=== PATIENT | male | born 1950 | race Two or more races ===

== ENCOUNTER 2016-12-13 05:33 | Inpatient (IN) | payer OTHER ==
[~2016-12-13] VITALS: Ht 170.2 cm; Wt 116.1 kg
[2016-12-13 05:59] VITALS: BP 123/70
[2016-12-13] MEDS ORDERED: HYDROCODONE/APAP 5/325MG 1 EACH TABLET PO PRN (06:30)
[2016-12-13] MEDS ORDERED: ZOLPIDEM TARTRATE 5 MG TABLET PO PRN (06:30)
[2016-12-13] MEDS ORDERED: Z GUARD REMEDY 2 OZ OINT TP PRN (06:30)
[2016-12-13] MEDS ORDERED: MAG HYDROX/AL HYDROX/SIMETH 30 ML UDC PO PRN (06:30)
[2016-12-13] MEDS ORDERED: ONDANSETRON HCL/PF 4 MG/2 ML VIAL IVP PRN (06:30)
[2016-12-13] MEDS ORDERED: ACETAMINOPHEN 325 MG TABLET PO PRN (06:30)
[2016-12-13] MEDS ORDERED: MAGNESIUM HYDROXIDE 30 ML UDC PO PRN (06:30)
--- NOTE | 2016-12-13 06:46 | NUR ---
ANALYTICAL CHEMIST ADMITTING AND CLOSING NOTES RECEIVED PATIENT VIA GURNEY FROM [facility] AT 0550 AM WITH 2 EMT. ALERT AND VERBALLY X 4, ON 2LPM VIA [place] 02 SAT AT 96% VS STABLE. CAREFUL HEAD TO TOE ASSESSMENT IS DONE. SACRUM REDNESS AND FOOT DRYNESS, EDUCATION WAS PROVIDED. RESPONSIVE DENIES PAIN OR DISTRESS, RESPONDS APPROPRIATELY TO VERBAL STIMULI, RESPIRATIONS EVEN UNLABORED BREATH SOUNDS. APICAL PULSE REGULAR; ATTACH TO TELE MONITOR. NO S/S OF BLEEDING NOTED. GOOD SKIN CARE PROVIDED. IN STABLE CONDITION WITH NO SOB NO S/S OF DISTRESS NO NAUSEA AND VOMITING NO HEADACHE NO PAIN, NO COMPLAIN OF CHEST PAIN SAFETY ENVIRONMENT PROVIDED. FREE OF CLUTTERS, NEEDS ATTENDED AND ANTICIPATED, NURSING CARE RENDERED, KEPT CLEAN AND DRY AND COMFORTABLE. ALL DUE MEDS WAS GIVEN. ASSISTED PATIENT TO REPOSITION. CALL LIGHT IN REACH, BED LOWERED AND LOCKED, SR X2 FOR SAFETY AND WILL ENDORSE CONTINUE PLAN OF CARE.
--- NOTE | 2016-12-13 07:15 | NUR ---
TRAINING AND DEVELOPMENT DIRECTOR INITIAL NOTES Received patient in bed, awake, head of bed elevated, no SOB or distress noted, on o2 at 2lpm NC and tolerated well. Patient alert and oriented times 4. Patient on tele monitor SR heart rate of 73. IV intact and patent, bed in lowest position and locked, call light within reach. Will continue to monitor accordingly.
[2016-12-13 07:20] VITALS: BP 123/70
[2016-12-13] MEDS ORDERED: METF500T4 PO (09:31)
[2016-12-13] MEDS ORDERED: VALS1TAB54 PO (09:31)
[2016-12-13] MEDS: PANTOPRAZOLE 40 MG TABLET.DR PO SCH (09:34)
[2016-12-13] MEDS ORDERED: IV NS 0.9% 250 ML IV ONE (09:34)
[2016-12-13] MEDS ORDERED: IV SET PRIMARY PUMP SET 1 EA INFUS.SET MC ONE (09:35)
[2016-12-13] MEDS: CEFTRIAXONE 1 G in IV D5W 50 ML IV SCH (09:35)
[2016-12-13] MEDS ORDERED: SECONDARY IV SET 1 EA INFUS.SET MC ONE ×2 (09:36→11:09)
[2016-12-13] MEDS: AZITHROMYCIN 500 MG in IV D5W 250 ML IV SCH (11:15)
[2016-12-13] MEDS ORDERED: DEXTROSE 50%-WATER 50 ML DISP.SYRIN IV PRN (14:00)
[2016-12-13] MEDS: ALBUTEROL FS 2.5 MG/0.5 ML VIAL.NEB NEB PRN ×2 (14:16→20:52)
[2016-12-13] MEDS: IPRATROPIUM NEB FS 0.5 MG/2.5 ML AMPUL.NEB NEB PRN ×2 (14:16→20:52)
--- NOTE | 2016-12-13 14:17 | NUR ---
RT NOTE: PATIENT'S ID BAND WAS NOT IN PATIENTS ROOM. WAS NOT ABLE TO SCAN. VERIFIED NAME AND . STAT TREATMENT REQUESTED BY PATIENT AND GIVEN WITH NO PROBLEMS.
[2016-12-13 16:00] VITALS: BP 118/73
[2016-12-13] MEDS: CIPROFLOXACIN HCL 0.3% 5 ML BOTTLE EACHEYE SCH ×5 (17:02→23:06)
[2016-12-13] MEDS: BLOOD SUGAR DIAGNOSTIC 1 EACH STRIP VI SCH ×2 (17:35→21:21)
[2016-12-13] MEDS: METFORMIN 500 MG TABLET PO SCH (17:35)
--- NOTE | 2016-12-13 18:51 | NUR ---
REGULATORY AFFAIRS DIRECTOR CLOSING NOTES All needs provided, attended, and anticipated. On tele monitor SR heart rate of 82. Kept patient clean and comfortable in bed, call within patient reach, will continue to monitor accordingly. Endorsed to next shift RN to continue care.
--- NOTE | 2016-12-13 19:23 | NUR ---
TRUCK SERVICE MANAGER OPENING NOTE PATIENT IS AWAKE, A/O X4, NO S/S OF DISTRESS, NO CHEST PAIN. NO SOB OR DISTRESS NOTED. IN STABLE CONDITION. SAFETY MEASURES IMPLEMENTED. IV INTACT NO S/S OF INFILTRATION NOTED. CALL LIGHT WITHIN REACH. ON LOW BED TO ENSURE SAFETY. WILL CONTINUE TO MONITOR
[2016-12-13 20:00] VITALS: BP 126/76
[2016-12-13] MEDS: *INSULIN REGULAR(HUMULIN R)HUM 100 UNIT/ML VIAL SQ PRN (21:22)
--- NOTE | 2016-12-13 21:50 | NUR ---
MS RN NOTES INSULIN 2 UNITS HS AT NIGHT REFUSED BY PATIENT DESPITE EXPLAINED RISKS AND BENEFITS OFFERED 3 TIMES MD MADE AWARE. BLOOD SUGAR 137MG/DL
[2016-12-14] VITALS: BP_SYST 109; BP_SYST 93; BP_DIAS 56; BP_DIAS 63
[2016-12-14] MEDS: CIPROFLOXACIN HCL 0.3% 5 ML BOTTLE EACHEYE SCH ×11 (02:02→21:53)
[2016-12-14 04:00] VITALS: BP_SYST 109; BP_DIAS 54; BP_DIAS 70
[2016-12-14] MEDS: BLOOD SUGAR DIAGNOSTIC 1 EACH STRIP VI SCH ×4 (05:43→22:37)
--- NOTE | 2016-12-14 06:24 | NUR ---
MANAGER LONG TERM CARE CLOSING NOTES PATIENT COMFORTABLY IN BED ASLEEP AND EASILY AWAKEN, IV SITE INTACT WITH NO S/S OF INFILTRATION NOTED. ON ATB EYE DROPS GOOD EYE CARE PROVIDED. ON O2 2LPM VIA NC 02 SAT AT 96% VS STABLE. NO S/S OF HYPO/HYPERGLYCEMIA NOTED. ALERT AND VERBALLY X 4 RESPONSIVE DENIES PAIN OR DISTRESS, RESPONDS APPROPRIATELY TO VERBAL STIMULI, RESPIRATIONS EVEN UNLABORED BREATH SOUNDS. APICAL PULSE REGULAR; GOOD SKIN CARE PROVIDED. PATIENT IN STABLE CONDITION WITH NO SOB NO S/S OF DISTRESS NO NAUSEA AND VOMITING NO HEADACHE NO PAIN, NO COMPLAIN OF CHEST PAIN SAFETY ENVIRONMENT PROVIDED. FREE OF CLUTTERS, SAFE HAZARD FREE ENVIRONMENT. NEEDS ATTENDED AND ANTICIPATED, NURSING CARE RENDERED, KEPT CLEAN AND DRY AND COMFORTABLE. ALL DUE MEDS WAS GIVEN. CALL LIGHT IN REACH, BED LOWERED AND LOCKED, SR X2 FOR SAFETY AND WILL ENDORSE CONTINUE PLAN OF CARE.
--- NOTE | 2016-12-14 07:30 | NUR ---
BRIDAL STYLIST SALES CONSULTANT NOTES RECEIVED PATIENT AWAKE SITTING ON THE CHAIR, AOX3. BREATHING EVEN AND NON LABORED. NO C/O SOB OR RESPIRATORY DISTRESS, DENIES ANY PAIN OR DISCOMFORT AT THIS TIME. ON TELE MONITORING SR 74. CALL LIGHT WITHIN REACH, BED IN LOW POSITION FOR SAFETY MEASURES, WILL CONTINUE TO MONITOR.
[2016-12-14 07:56] LABS: BASOPHILS % (AUTO) 0.2 % (0.0-2.0); EOSINOPHILS % (AUTO) 0.3 % (0.0-6.0); HEMATOCRIT 46 % (39-51); LYMPHOCYTES # (AUTO) 1.6 /CMM (0.8-4.8); MEAN CORPUSCULAR HEMOGLOBIN 31 PG (26.0-33.0); MEAN CORPUSCULAR HGB CONC 33 g/dl (31.0-36.0); MEAN CORPUSCULAR VOLUME 94 fL (80-96); MONOCYTES # (AUTO) 0.8 /CMM (0.1-1.30); MONOCYTES % (AUTO) 9.7 % (2.0-12.0); NEUTROPHILS # (AUTO) 5.6 /CMM (1.8-8.9); NEUTROPHILS % (AUTO) 69.8 % (43.0-81.0); PLATELET COUNT (AUTO) 219 /CMM (150-450); RED BLOOD CELL COUNT(AUTO) 4.84 MIL/uL (4.5-6.0)
[2016-12-14 08:00] VITALS: BP 139/75
[2016-12-14 08:10] LABS: CALCIUM, SERUM 8.8 mg/dL (8.5-10.1); CREATININE 1.3 mg/dL (0.6-1.3)
[2016-12-14] MEDS: VALSARTAN 80 MG TABLET PO SCH (08:20)
[2016-12-14] MEDS: METFORMIN 500 MG TABLET PO SCH ×2 (08:20→16:26)
[2016-12-14] MEDS: PANTOPRAZOLE 40 MG TABLET.DR PO SCH (08:20)
[2016-12-14] MEDS: HYDROCHLOROTHIAZIDE 25 MG TABLET PO SCH (08:21)
[2016-12-14] MEDS: CEFTRIAXONE 1 G in IV D5W 50 ML IV SCH (08:27)
[2016-12-14] MEDS ORDERED: CEFTRIAXONE 1 G in IV D5W 50 ML IV SCH (09:00)
[2016-12-14] MEDS: AZITHROMYCIN 500 MG in IV D5W 250 ML IV SCH (10:00)
--- NOTE | 2016-12-14 10:06 | NUR ---
FIRE HOSE CURER NOTES PT C/O HEADACHE. TYLENOL PRN GIVEN ORDERED.
--- NOTE | 2016-12-14 11:06 | NUR ---
PEARL DIGGER NOTES RE EVAL DONE AFTER 1 HOUR. PATIENT STATED HE FEEL MUCH BETTER AND NO MORE HEADACHE. WILL CONTINUE TO MONITOR
[2016-12-14] MEDS: INSULIN REGULAR, HUMAN 100 UNIT/ML 3 ML VIAL SQ PRN ×2 (11:33→16:28)
--- NOTE | 2016-12-14 11:33 | NUR ---
COTTON GINNER NOTES PATIENT BLOOD SUGAR 233. PATIENT REFUSED TO TAKE HIS INSULIN COVERAGE. PATIENT STATED THAT HE'S ON METFORMIN AND HE DOESN'T NEED INSULIN. PATIENT EDUCATED ON HAVING HIGH BLOOD SUGAR AND NOT TAKING HIS PRESCRIBED INSULIN, PT VERBALIZED UNDERSTANDING. BUT STILL REFUSED TO TAKE HIS INSULIN COVERAGE.
[2016-12-14 12:00] VITALS: BP 129/73
--- NOTE | 2016-12-14 12:05 | NUR ---
STOVE POLISHER NOTES PT'S DIET CHANGED TO CCHO SINCE PT IS REFUSING HIS INSULIN. FOR DM MANAGEMENT.
[2016-12-14 16:00] VITALS: BP 117/69
[2016-12-14] MEDS: LACTOBACILLUS RHAMNOSUS GG 1 EACH CAP.SPRINK PO SCH (16:26)
--- NOTE | 2016-12-14 16:51 | NUR ---
MS RN NOTES C/O SORE THROAT CEPACOL LOZENGES PRN GIVEN ORDERED.
--- NOTE | 2016-12-14 16:52 | NUR ---
MS RN NOTES BLOOD SUGAR 128 NO INSULIN COVERAGE
[2016-12-14] MEDS ORDERED: MENTHOL/CETYLPYRD (CEPACOL) 1 LOZ LOZENGE PO PRN (17:00)
--- NOTE | 2016-12-14 19:28 | NUR ---
MS RN NOTES ALL NEEDS ATTENDED AND ANTICIPATED. ENDORSED TO INCOMING SHIFT FOR CONTINUITY OF CARE.
[2016-12-14 20:00] VITALS: BP 127/81
--- NOTE | 2016-12-14 20:24 | NUR ---
Received patient awake, alert and oriented. Patient sitting in a chair at bedside, family at bedside visiting. PAtient complained of headache /, medicated him with norco as per Oct, .
--- NOTE | 2016-12-14 22:29 | NUR ---
Medicated patient as per Oct. Patient tolerated well. Patient having non productive cough, respiratory therapy paged, breathing tratment given. Patient now in bed not coughing, resting comfortably with eyes closed.
[2016-12-14] MEDS: *INSULIN REGULAR(HUMULIN R)HUM 100 UNIT/ML VIAL SQ PRN (22:39)
[2016-12-14] MEDS: ALBUTEROL FS 2.5 MG/0.5 ML VIAL.NEB NEB PRN (22:42)
[2016-12-14] MEDS: IPRATROPIUM NEB FS 0.5 MG/2.5 ML AMPUL.NEB NEB PRN (22:43)
--- NOTE | 2016-12-15 | NUR ---
Patient complains of pain from an infiltrated IV on his right hand, removed, patient tolerated well. Saline lock on left hand flushed with normal saline, patient had no complaints of pain, patent.
[2016-12-15] MEDS: CIPROFLOXACIN HCL 0.3% 5 ML BOTTLE EACHEYE SCH ×6 (00:20→07:59)
--- NOTE | 2016-12-15 04:02 | NUR ---
Patient lying in bed comfortably, no distress, no complaints.
[2016-12-15 07:32] LABS: BASOPHILS % (AUTO) 0.2 % (0.0-2.0); EOSINOPHILS % (AUTO) 0.5 % (0.0-6.0); HEMATOCRIT 48 % (39-51); HEMOGLOBIN 15.8 g/dL (13.5-17.5); LYMPHOCYTES # (AUTO) 1.5 /CMM (0.8-4.8); LYMPHOCYTES % (AUTO) 18.6 % (20.0-44.0); MEAN CORPUSCULAR HEMOGLOBIN 31 PG (26.0-33.0); MEAN CORPUSCULAR HGB CONC 33 g/dl (31.0-36.0); MEAN CORPUSCULAR VOLUME 93 fL (80-96); MONOCYTES # (AUTO) 0.6 /CMM (0.1-1.30); MONOCYTES % (AUTO) 7.4 % (2.0-12.0); NEUTROPHILS # (AUTO) 5.9 /CMM (1.8-8.9); NEUTROPHILS % (AUTO) 73.3 % (43.0-81.0); PLATELET COUNT (AUTO) 219 /CMM (150-450); RED BLOOD CELL COUNT(AUTO) 5.09 MIL/uL (4.5-6.0)
--- NOTE | 2016-12-15 07:35 | NUR ---
RN OPEN NOTES RECEIVED REPORT FROM LAYUP WORKER NURSE. PATIENT IS IN HIS ROOM, SITTING IN A CHAIR. SPEAKS UKRAINIAN AND TURKS AND CAICOS ISLANDER ONLY. PATIENT IS ALERT AND ORIENTED. DENIED PAIN. NO SIGNS AND SYMPTOMS OF DISTRESS. WILL CONTINUE TO MONITOR AND ASSESS PATIENT
[2016-12-15] MEDS: BLOOD SUGAR DIAGNOSTIC 1 EACH STRIP VI SCH (07:55)
--- NOTE | 2016-12-15 07:56 | NUR ---
RN NOTES BLOOD SUGAR BLOOD SUGAR 170. PATIENT REFUSED INSULIN COVERAGE
[2016-12-15 07:58] LABS: CALCIUM, SERUM 9.3 mg/dL (8.5-10.1); CREATININE 1.3 mg/dL (0.6-1.3); POTASSIUM 4.6 mmol/L (3.5-5.1)
[2016-12-15 08:00] VITALS: BP 135/80
[2016-12-15] MEDS: CEFTRIAXONE 1 G in IV D5W 50 ML IV SCH (08:04)
[2016-12-15] MEDS: METFORMIN 500 MG TABLET PO SCH (08:06)
[2016-12-15] MEDS: LACTOBACILLUS RHAMNOSUS GG 1 EACH CAP.SPRINK PO SCH (08:06)
[2016-12-15] MEDS: HYDROCHLOROTHIAZIDE 25 MG TABLET PO SCH (08:07)
[2016-12-15] MEDS: PANTOPRAZOLE 40 MG TABLET.DR PO SCH (08:07)
[2016-12-15 08:09] VITALS: BP 135/80
[2016-12-15] MEDS: VALSARTAN 80 MG TABLET PO SCH (08:09)
[2016-12-15] MEDS ORDERED: AZITHROMYCIN 250 MG TABLET PO SCH (10:00)
--- NOTE | 2016-12-15 11:05 | NUR ---
RUBBER PRESS OPERATOR NOTES PATIENT DISCHARGE ORDERS RECEIVED AND EXPLAINED TO PATIENT'S DAUGHTER. BOTH VERBALIZED UNDERSTANDING. ALL PERSONAL BELONGING WITH PATIENT AT TIME OF DISCHARGE. PICTURES HAS BEEN TAKEN DURING THE PREVIOUS SHIFT AND PLACED IN THE CHART. PATIENT IS BEING DISCHARGE IN A STABLE CONDITION. PRESCRIPTION GAVE TO PATIENT. NO SIGNS AND SYMPTOMS OF DISTRESS. IV SITE REMOVED. ID BAND REMOVED. PATIENT LEFT THE UNIT WITH HIS DAUGHTER AND TRANSPORTED HOME VIA A PRIVATE CAR.
[2016-12-15] MEDS ORDERED: CIPROFLOXACIN HCL 0.3% 5 ML BOTTLE EACHEYE SCH (13:00)
== END 2016-12-15 11:00 | disposition home or self-care (01) | DRG 139 ==
LOC: TELE 05:33 → MED 12-14 13:34
PROVIDERS: ADMIT Nurse Practitioner Acute Care; ATTEND Family Medicine
DX: J15.9 Unspecified bacterial pneumonia (principal); E44.1 Mild protein-calorie malnutrition; I10 Essential (primary) hypertension; E66.01 Morbid (severe) obesity due to excess calories; E11.9 Type 2 diabetes mellitus without complications; H10.9 Unspecified conjunctivitis; K21.9 Gastro-esophageal reflux disease without esophagitis; Z72.0 Tobacco use; F17.210 Nicotine dependence, cigarettes, uncomplicated; Z68.41 Body mass index [BMI] 40.0-44.9, adult
CPT/HCPCS: 36415; 80048-TC; 80061-TC; 82962-TC; 85025-TC; 87070-TC; 87081-TC; 94799-TC; J0456; J0696; J1815; J7050; J7060

== ENCOUNTER 2022-12-11 21:00 | Inpatient (IN) | payer MEDICARE, OTHER ==
[~2022-12-11] VITALS: Ht 167.6 cm; Wt 128.4 kg
[~2022-12-11 21:00] MED LIST: AMLO-212 PO; GUAI5SYR PO; METF-440 PO; VALS80TA2 PO
--- NOTE | 2022-12-11 21:47 | NUR ---
PT IN BED 7 BREATHING IS EVEN 90% ON ROOM AIR. PT C/O OF SOB NC APPLED 3L O2SAT 94% ON REASSESSMENT. FRIEND AT BEDSIDE. CONNECTED TO BEDISDE MONITOR VITAL WNL.
[2022-12-11 21:55] LABS: BASOPHILS # (AUTO) 0.4 K/uL (0.0-0.2); HEMATOCRIT 46 % (39-51); HEMOGLOBIN 14.9 g/dL (13.5-17.5); MEAN CORPUSCULAR HGB CONC 32 g/dl (31.0-36.0); MEAN CORPUSCULAR VOLUME 94 fL (80-96); MONOCYTES # (AUTO) 0.5 K/uL (0.1-1.30); MONOCYTES % (AUTO) 5.9 % (2.0-12.0); NEUTROPHILS # (AUTO) 6.4 K/uL (1.8-8.9); PLATELET COUNT (AUTO) 185 K/uL (150-450); RED BLOOD CELL COUNT(AUTO) 4.93 MIL/uL (4.5-6.0); WHITE BLOOD COUNT (AUTO) 8.4 K/uL (4.3-11.0)
[2022-12-11 22:11] LABS: BASOPHILS % (AUTO) 5.1 % (0.0-2.0)
[2022-12-11 22:40] LABS: ALANINE AMINOTRANSFERASE 36 U/L (12-78); ALBUMIN 3.4 g/dL (3.4-5.0); ALKALINE PHOSPHATASE 79 U/L (46-116); ASPARTATE AMINOTRANSFERASE 15 U/L (15-37); BILIRUBIN,DIRECT 0.1 mg/dL (0.0-0.2); BILIRUBIN,TOTAL 0.5 mg/dL (0.2-1.0); CALCIUM, SERUM 8.8 mg/dL (8.5-10.1); CREATININE 1.6 mg/dL (0.6-1.3); GLUCOSE 186 mg/dL (74-106); TOTAL PROTEIN, SERUM 6.9 g/dL (6.4-8.2); UREA NITROGEN, BLOOD 36 mg/dL (7-18)
[2022-12-11 22:53] LABS: CARBON DIOXIDE 32 mmol/L (21-32); CHLORIDE 107 mmol/L (98-107); POTASSIUM 4.5 mmol/L (3.5-5.1); SODIUM SERUM 145 mmol/L (136-145)
[2022-12-12] VITALS (9 sets, daily range): BP systolic 103–140; BP diastolic 64–98
[2022-12-12] MEDS ORDERED: ONDANSETRON HCL/PF 4 MG/2 ML VIAL IVP PRN
[2022-12-12] MEDS ORDERED: ACETAMINOPHEN 325 MG TABLET PO PRN
--- NOTE | 2022-12-12 | NUR ---
DUPLICATE ORDER OF LASIX INJ NOT GIVEN.
[2022-12-12] MEDS ORDERED: FUROSEMIDE 40 MG/4 ML VIAL IV ONE ×2 (00:30)
--- NOTE | 2022-12-12 01:13 | NUR ---
REPORT GIVEN TO ELISHA VALLE 3W
--- NOTE | 2022-12-12 01:22 | NUR ---
PT BEING TRANSPORTED TO UNIT ON [facility] WITH EMT AND RN AT BEDSIDE W/ ACLS PROTOCOL.
--- NOTE | 2022-12-12 02:00 | NUR ---
RECEIVED PT FROM NURSE BYRNE OF ED. PT ABLE TO WALK FROM [place] TO BED. A/O X 3, ALGERIAN SPEAKING BUT CAN SPEAK & UNDERSTAND SIMPLE SAMI, ABLE TO MAKE NEEDS KNOWN. ORIENTED TO STAFF AND UNIT. PT IN 2LMP O2 INHALATION VIA NASAL CANNULA., TOLERATING WELL, BREATHING EVEN AND UNLABORED @ THIS TIME. PT IV ACCESS IS PRESENT ON LEFT AC #20G SALINE LOCK, PATENT, INTACT AND FLUSHES WELL W/ NO S&SX OF INFILTRATION @ SITE NOTED. PT IS ON BRICK MOLDER HAND WITH CURRENT READING OF AFIB, HR 81. PT IS AMBULATORY WITH ASSISTANCE BUT GIVEN URINAL ON BEDSIDE. VITAL SIGNS TAKEN AND DOCUMENTED. SKIN IS WARM AND DRY. PHOTOS OF SKIN ON BILATERAL LOWER EXTREMITY IS TAKEN AND FILED ON PT CHART. PT BELONGINGS IS LISTED AND ACCOUNTED FOR AND FILED ON PT CHART. ALL NEEDS ATTENDED. SAFETY MEASURE IS IN PLACE. BED PLACED IN LOWEST & LOCKED POSITION. SIDE RAILS X 2. BEDSIDE TABLE AND CALL LIGHT IS EASY REACH. BED ALARM IS ON. WILL CONTINUE TO MONITOR PT ACCORDINGLY.
[2022-12-12 06:23] LABS: BASOPHILS % (AUTO) 0.4 % (0.0-2.0); EOSINOPHILS % (AUTO) 0.6 % (0.0-6.0); HEMATOCRIT 45 % (39-51); HEMOGLOBIN 14.7 g/dL (13.5-17.5); LYMPHOCYTES # (AUTO) 1.3 K/uL (0.8-4.8); LYMPHOCYTES % (AUTO) 17.3 % (20.0-44.0); MEAN CORPUSCULAR HGB CONC 33 g/dl (31.0-36.0); MEAN CORPUSCULAR VOLUME 94 fL (80-96); MONOCYTES # (AUTO) 0.6 K/uL (0.1-1.30); MONOCYTES % (AUTO) 8.1 % (2.0-12.0); NEUTROPHILS # (AUTO) 5.6 K/uL (1.8-8.9); NEUTROPHILS % (AUTO) 73.6 % (43.0-81.0); PLATELET COUNT (AUTO) 168 K/uL (150-450); RED BLOOD CELL COUNT(AUTO) 4.83 MIL/uL (4.5-6.0); WHITE BLOOD COUNT (AUTO) 7.6 K/uL (4.3-11.0)
--- NOTE | 2022-12-12 06:38 | NUR ---
RN CLOSING NOTE PT AWAKE AND RESTING COMFORTABLY IN BED. A/O X 3, RESPONSIVE AND FOLLOWS VERBAL COMMAND. PT IN 2LMP O2 INHALATION VIA NASAL CANNULA, W/ NO s & SX OF RESPIRATORY DISTRESS @ THIS TIME. PT IV ACCESS IS PRESENT ON LEFT AC #20G SALINE LOCK, PATENT, INTACT AND FLUSHES WELL W/ NO S&SX OF INFILTRATION @ SITE NOTED. PT IS ON YOUTH DIRECTOR WITH CURRENT READING OF AFIB HR 89 BPM. PT IS KEPT CLEAN, DRY AND COMFORTABLE. ADMINISTERED MEDICATION ACCORDINGLY PER MD'S ORDER. SAFETY MEASURE IS IN PLACE. BED PLACED IN LOWEST & LOCKED POSITION. SIDE RAILS X 2. BEDSIDE TABLE AND CALL LIGHT IS EASY REACH. BED ALARM IS ON. WILL ENDORSE TO THE NEXT SHIFT FOR KAILEE.
[2022-12-12 07:07] LABS: CALCIUM, SERUM 9.2 mg/dL (8.5-10.1); CREATININE 1.5 mg/dL (0.6-1.3); MAGNESIUM 1.9 mg/dL (1.8-2.4); PHOSPHORUS 3.4 mg/dL (2.5-4.9); POTASSIUM 4.2 mmol/L (3.5-5.1)
--- NOTE | 2022-12-12 07:42 | NUR ---
INSTRUMENT REPAIR SPECIALIST OPENING NOTE (DAY SHIFT) Patient received awake and alert & oriented x 4 in bed, with even regular breathing on oxygen via nasal cannula @ 2 LPM. Patietn able to make needs known and to folow commands. No signs of distress nor pain observed and patient denied pain. ekg monitor showing controlled atrial fibrillation with heart rate ranging in 70s to 80s bpm. Lung sounds diminished in bases, but otherwise clear to auscultation. Positive bowel sounds to abdomen with report of flatus. Safety fall precautions maintained: bed in lowest position; three bed side rails up; bed brakes locked; and call brandon/light with bed side table within patient's reach. Will continue to monitor and care for patient per MD POC.
[2022-12-12] MEDS ORDERED: VALSARTAN 80 MG TABLET PO SCH (09:00)
[2022-12-12] MEDS ORDERED: DEXTROSE 50%-WATER 50 ML DISP.SYRIN IV PRN (09:00)
[2022-12-12] MEDS: AMLODIPINE BESYLATE 5 MG TABLET PO SCH (09:30)
[2022-12-12] MEDS: FUROSEMIDE 100 MG/10 ML VIAL IV SCH ×3 (09:30→17:35)
[2022-12-12] MEDS: ENOXAPARIN SODIUM 40 MG/0.4 ML DISP.SYRIN SQ SCH (09:32)
[2022-12-12] MEDS ORDERED: ERGO500093 PO (10:56)
[2022-12-12] MEDS ORDERED: LOSA50TA39 PO (10:56)
[2022-12-12] MEDS ORDERED: GLIM2TAB31 PO (10:56)
[2022-12-12] MEDS ORDERED: POTA10TA10 PO (10:56)
[2022-12-12] MEDS ORDERED: ATOR40TA PO (10:56)
[2022-12-12] MEDS ORDERED: GABA300C PO (10:56)
[2022-12-12] MEDS ORDERED: EMPA10TA PO (10:56)
[2022-12-12] MEDS ORDERED: FURO20TA4 PO (10:56)
[2022-12-12] MEDS ORDERED: FOLI0.4T6 PO (10:56)
[2022-12-12] MEDS ORDERED: CARV25TA2 PO (10:56)
[2022-12-12] MEDS ORDERED: DULA0.75 SQ (10:56)
[2022-12-12] MEDS: INSULIN REGULAR, HUMAN 100 UNIT/ML 3 ML VIAL SQ PRN ×2 (12:30→16:46)
[2022-12-12] MEDS: BLOOD SUGAR DIAGNOSTIC 1 EACH STRIP IN SCH ×3 (12:30→21:24)
[2022-12-12 16:59] LABS: BILIRUBIN,URINE NEGATIVE (NEGATIVE); COLOR,URINE YELLOW (YELLOW); LEUKOCYTE ESTERASE ,URINE NEGATIVE (NEGATIVE); NITRITE, URINE NEGATIVE (NEGATIVE); PROTEIN,URINE NEGATIVE (NEGATIVE); UGLUCOSE NEGATIVE (NEGATIVE); UROBILINOGEN,URINE 0.2 EU/dL (0.2)
[2022-12-12 17:11] LABS: CREATININE, URINE 22.5 MG/DL (30.0-125.0)
[2022-12-12] MEDS: GLIMEPIRIDE 1 MG TABLET PO SCH (17:35)
[2022-12-12] MEDS: ATORVASTATIN 40 MG TABLET PO SCH ×2 (17:35→21:05)
--- NOTE | 2022-12-12 19:00 | NUR ---
NAVIGATION TEACHER CLOSING NOTE (DAY SHIFT) PT AWAKE AND RESTING COMFORTABLY SITTING UPRIGHT IN CHAIR. A/O X 3, RESPONSIVE AND FOLLOWS VERBAL COMMAND. PATIENT SPEAKS MOSTLY ARABIC. PT ON 2 LPM OXYGEN VIA NASAL CANNULA, WITH NO SIGNS NOR SYMPTOMS OF RESPIRATORY DISTRESS @ THIS TIME. PT IV ACCESS IS PRESENT ON LEFT AC #20G SALINE LOCK, PATENT, INTACT AND FLUSHES WELL WITH NO S & SX OF INFILTRATION @ SITE NOTED. PT IS ON MILITARY EXCHANGE WIRELESS MANAGER WITH CURRENT READING OF AFIB RANGING BETWEEN 70S TO 80S BPM HEART RATE. PT IS KEPT CLEAN, DRY AND COMFORTABLE. ADMINISTERED MEDICATION PER MD'S ORDER. PATIENT REFUSING REGULAR INSULIN SQ INJECTIONS. MD AWARE. SAFETY MEASURES ARE IN PLACE. BED PLACED IN LOWEST & LOCKED POSITION. SIDE RAILS X 2. BEDSIDE TABLE AND CALL LIGHT IS WITHIN EASY REACH OF PATIENT. WILL ENDORSE TO THE LOTUS NOTES ADMINISTRATOR RN, ESTELA, FOR KAILEE.
--- NOTE | 2022-12-12 19:30 | NUR ---
MEDICAL DOCTOR OPENING NOTES RECEIVED PATIENT AWAKE IN BED. PATIENT IS A/O TIMES 4. PORTUGUESE AND GREEK SPEAKER. DAUGHTER PERLA AT BED SIDE. NO PAIN NOTED. NO SOB NOTED. NO DISTRESS NOTED. POOR BILATERAL VISION. AMBULATES WITH ASSISTANCE. ON TELE MONITOR READING CONTROLLED AFIB. IV ACCESS ON THE LAC # 20 INTACT AND SL. ALL NEEDS ATTENDED. REMINDED THE PATIENT TO USE CALL LIGHT FOR ASSISTANCE , VERBALIZED UNDERSTANDING. ALL SAFETY MEASURES IN LACE. BED LOCKED IN THE LOWEST POSITION. CALL LIGHT AND TABLE IN EASY REACH. SIDE RAILS UP TIMES 2. WILL CONTINUE TO MONITOR CLOSELY.
[2022-12-12] MEDS: GABAPENTIN 300 MG CAPSULE PO SCH (21:05)
--- NOTE | 2022-12-12 22:00 | NUR ---
RN NOTES BLOOD SUGAR CHECKED FOR 2200 IT WAS 150. PATIENT REFUSED INSULIN. OFFERED AND EXPLAINED THE USE OF THE MEDICATION. PATIENT STILL REFUSING.
[2022-12-13] VITALS: BP 92/50
[2022-12-13 04:00] VITALS: BP 99/58
[2022-12-13 06:19] LABS: BASOPHILS % (AUTO) 0.4 % (0.0-2.0); EOSINOPHILS % (AUTO) 0.4 % (0.0-6.0); HEMATOCRIT 48 % (39-51); HEMOGLOBIN 15.4 g/dL (13.5-17.5); LYMPHOCYTES # (AUTO) 1.6 K/uL (0.8-4.8); LYMPHOCYTES % (AUTO) 20.6 % (20.0-44.0); MEAN CORPUSCULAR HGB CONC 32 g/dl (31.0-36.0); MEAN CORPUSCULAR VOLUME 94 fL (80-96); MONOCYTES # (AUTO) 0.7 K/uL (0.1-1.30); MONOCYTES % (AUTO) 8.9 % (2.0-12.0); NEUTROPHILS # (AUTO) 5.6 K/uL (1.8-8.9); NEUTROPHILS % (AUTO) 69.7 % (43.0-81.0); PLATELET COUNT (AUTO) 202 K/uL (150-450)
[2022-12-13 07:00] VITALS: BP 95/54
[2022-12-13 07:08] LABS: ALBUMIN 3.4 g/dL (3.4-5.0); BILIRUBIN,TOTAL 1.1 mg/dL (0.2-1.0); CALCIUM, SERUM 9.3 mg/dL (8.5-10.1); CREATININE 1.9 mg/dL (0.6-1.3); PHOSPHORUS 4.8 mg/dL (2.5-4.9); POTASSIUM 4.1 mmol/L (3.5-5.1); TOTAL PROTEIN, SERUM 6.9 g/dL (6.4-8.2)
--- NOTE | 2022-12-13 07:30 | NUR ---
RN NOTES BLOOD SUGAR CHECKED NOTED 136. PATIENT REFUSED INSULIN.
--- NOTE | 2022-12-13 07:35 | NUR ---
RN OPENING NOTE RECEIVED PATIENT IN BED, AWAKE, A/O X4, VERBALLY RESPONSIVE AND ABLE TO MAKE NEEDS KNOWN, UPPER SORBIAN SPEAKING. ON O2 INHALATION @2LPM VIA N/C, BREATHING EVEN AND UNLABORED. ON QUARTER SECTION IRONER SHOWING SINUS RHYTHM, HR @88. DENIES ANY PAIN AT THIS TIME. WITH IV ACCESS ON LEFT ANTECUBITAL AREA #20G, INTACT AND PATENT, SALINE LOCKED. SAFETY MEASURE IN PLACE. BED IN LOW AND LOCKED POSITION, SIDE RAILS UP X2, CALL LIGHT PLACED WITHIN EASY REACH. WILL CONTINUE TO MONITOR PATIENT.
[2022-12-13] MEDS: BLOOD SUGAR DIAGNOSTIC 1 EACH STRIP IN SCH ×4 (07:39→22:01)
--- NOTE | 2022-12-13 07:57 | NUR ---
RN HEMATOLOGY CLOSING NOTES PATIENT AWAKE IN BED. PATIENT IS A/O TIMES 4. LUXEMBOURGER AND VATICAN CITIZEN SPEAKER. NO PAIN NOTED. NO SOB NOTED. NO DISTRESS NOTED. POOR BILATERAL VISION. AMBULATES WITH ASSISTANCE. ON TELE MONITOR READING SR. IV ACCESS ON THE LAC # 20 INTACT AND SL. ALL DUE MEDS GIVEN ORDERED. ALL NEEDS ATTENDED. REMINDED THE PATIENT TO USE CALL LIGHT FOR ASSISTANCE , VERBALIZED UNDERSTANDING. ALL SAFETY MEASURES IN LACE. BED LOCKED IN THE LOWEST POSITION. CALL LIGHT AND TABLE IN EASY REACH. SIDE RAILS UP TIMES 2. WILL ENDORSE FOR KAILEE.
[2022-12-13] MEDS: FOLIC ACID 1 MG TABLET PO SCH (08:45)
[2022-12-13] MEDS: AMLODIPINE BESYLATE 5 MG TABLET PO SCH (08:45)
[2022-12-13] MEDS: POTASSIUM CHLORIDE 10 MEQ TABLET.SA PO SCH (08:45)
[2022-12-13] MEDS: GLIMEPIRIDE 1 MG TABLET PO SCH ×2 (08:47→17:29)
[2022-12-13] MEDS: ENOXAPARIN SODIUM 40 MG/0.4 ML DISP.SYRIN SQ SCH (08:53)
[2022-12-13 16:00] VITALS: BP 128/78
--- NOTE | 2022-12-13 18:52 | NUR ---
RN CLOSING NOTE PATIENT IN BED, AWAKE, A/O X4, VERBALLY RESPONSIVE AND ABLE TO MAKE NEEDS KNOWN, TUNISIAN SPEAKING. FAMILY AT BEDSIDE. REMAINS ON O2 INHALATION @2LPM VIA N/C, BREATHING EVEN AND UNLABORED. CONTINUE ON CARDIAC MONITORING SHOWING AFIB HR @88. DENIES ANY PAIN AT THIS TIME. WITH IV ACCESS ON LEFT ANTECUBITAL AREA #20G, INTACT AND PATENT, SALINE LOCKED. ALL DUE MEDS GIVEN. SAFETY MEASURE MAINTAINED. BED IN LOW AND LOCKED POSITION, SIDE RAILS UP X2, CALL LIGHT PLACED WITHIN EASY REACH. WILL ENDORSE TO NEXT SHIFT FOR KAILEE.
--- NOTE | 2022-12-13 19:31 | NUR ---
RN OPENING NOTE; RECEIVED PATIENT IN BED, AWAKE, A/O X4, VERBALLY RESPONSIVE AND ABLE TO MAKE NEEDS KNOWN, ITALIAN SPEAKING. FAMILY AT BEDSIDE.ON 2L O2 VIA NC FARZAD WELL SATING 97.6%,NO SOB/DISTRESS NOTED,WITH IV ACCESS ON LEFT ANTECUBITAL AREA #20G, INTACT AND PATENT, SALINE LOCKED.SAFETY MEASURE MAINTAINED. BED IN LOW AND LOCKED POSITION, SIDE RAILS UP X2, CALL LIGHT PLACED WITHIN EASY REACH. WILL CONTINUE TO MONITOR.
[2022-12-13 20:00] VITALS: BP 106/76
[2022-12-13] MEDS: GABAPENTIN 300 MG CAPSULE PO SCH (21:10)
[2022-12-13] MEDS: ATORVASTATIN 40 MG TABLET PO SCH (21:11)
[2022-12-14] VITALS: BP 101/56
[2022-12-14 04:00] VITALS: BP 116/54
[2022-12-14] MEDS: BLOOD SUGAR DIAGNOSTIC 1 EACH STRIP IN SCH ×4 (06:20→22:13)
[2022-12-14 06:30] LABS: BASOPHILS % (AUTO) 0.4 % (0.0-2.0); EOSINOPHILS % (AUTO) 0.6 % (0.0-6.0); HEMATOCRIT 49 % (39-51); HEMOGLOBIN 15.6 g/dL (13.5-17.5); LYMPHOCYTES # (AUTO) 1.8 K/uL (0.8-4.8); LYMPHOCYTES % (AUTO) 24.9 % (20.0-44.0); MEAN CORPUSCULAR HGB CONC 32 g/dl (31.0-36.0); MEAN CORPUSCULAR VOLUME 94 fL (80-96); MONOCYTES # (AUTO) 0.8 K/uL (0.1-1.30); MONOCYTES % (AUTO) 10.5 % (2.0-12.0); NEUTROPHILS # (AUTO) 4.6 K/uL (1.8-8.9); NEUTROPHILS % (AUTO) 63.6 % (43.0-81.0); PLATELET COUNT (AUTO) 177 K/uL (150-450); RED BLOOD CELL COUNT(AUTO) 5.16 MIL/uL (4.5-6.0); WHITE BLOOD COUNT (AUTO) 7.3 K/uL (4.3-11.0)
--- NOTE | 2022-12-14 06:30 | NUR ---
RN CLOSING NOTE; PATIENT IN BED, AWAKE, A/O X4, VERBALLY RESPONSIVE AND ABLE TO MAKE NEEDS KNOWN, UKRAINIAN SPEAKING.ON 2L O2 VIA NC FARZAD WELL SATING 98%,NO SOB/DISTRESS NOTED,NO COMPLAIN OF PAIN/DISCOMFORT DURING SHIFT,ALL NEEDS ATTENDED,DUE MEDS GIVEN ORDER,WITH IV ACCESS ON LEFT ANTECUBITAL AREA #20G, INTACT AND PATENT, SALINE LOCKED.SAFETY MEASURE MAINTAINED. BED IN LOW AND LOCKED POSITION, SIDE RAILS UP X2, CALL LIGHT PLACED WITHIN EASY REACH. WILL ENDORSED TO NEXT SHIFT.
[2022-12-14 06:47] LABS: ALBUMIN 3.1 g/dL (3.4-5.0); BILIRUBIN,TOTAL 0.9 mg/dL (0.2-1.0); CALCIUM, SERUM 9.2 mg/dL (8.5-10.1); CREATININE 1.7 mg/dL (0.6-1.3); MAGNESIUM 2.2 mg/dL (1.8-2.4); PHOSPHORUS 4.2 mg/dL (2.5-4.9); POTASSIUM 3.9 mmol/L (3.5-5.1); TOTAL PROTEIN, SERUM 6.4 g/dL (6.4-8.2)
--- NOTE | 2022-12-14 07:45 | NUR ---
MACHINIST 2ND SHIFT OPENING NOTE; RECEIVED PATIENT IN BED, AWAKE, A/O X4, VERBALLY RESPONSIVE AND ABLE TO MAKE NEEDS KNOWN, ALGERIAN SPEAKING. NO SIGNS OF ACUTE DISTRESS NOTED. ON O2 INHALATION AT 2LPM VIA NC TOLERATING WELL, SATURATING 97%. NO SOB NOTED, BREATHING EVEN AND UNLABORED. ON TELE MONITOR-AFIB CONTROL 79 BPM. NOTED WITH IV ACCESS ON LEFT ANTECUBITAL AREA #20G, INTACT AND PATENT, SL. SAFETY MEASURE IN PLACE. BED IN LOW AND LOCKED POSITION; SIDE RAILS UP X2; CALL LIGHT PLACED WITHIN EASY REACH. WILL CONTINUE TO MONITOR THE PATIENT.
[2022-12-14 08:00] VITALS: BP 93/65
[2022-12-14] MEDS: FUROSEMIDE 100 MG/10 ML VIAL IV SCH ×3 (08:30→17:41)
[2022-12-14] MEDS: POTASSIUM CHLORIDE 10 MEQ TABLET.SA PO SCH (09:00)
[2022-12-14] MEDS: AMLODIPINE BESYLATE 5 MG TABLET PO SCH (09:00)
[2022-12-14] MEDS: GLIMEPIRIDE 1 MG TABLET PO SCH ×2 (09:06→17:41)
[2022-12-14] MEDS: FOLIC ACID 1 MG TABLET PO SCH (09:06)
[2022-12-14] MEDS: ENOXAPARIN SODIUM 40 MG/0.4 ML DISP.SYRIN SQ SCH (09:07)
--- NOTE | 2022-12-14 09:10 | NUR ---
MS TELLO WASN'T ABLE TO ADMINISTER LASIX INJ, NORVASC AND KDUR DUE TO PATIENT HAS LOW BP, 93/65MMHG. MADE AWARE. Addendum: 12/14/22 at 1024 by SHIELA REYNOLDS RN JORI TELLO
[2022-12-14 12:00] VITALS: BP 92/72
--- NOTE | 2022-12-14 13:30 | NUR ---
UPHOLSTERY CLEANER SEEN BY DR. FAWN FINE.
[2022-12-14 16:19] VITALS: BP 113/71
--- NOTE | 2022-12-14 18:58 | NUR ---
COVER CUTTER CLOSING NOTE PATIENT IN BED, AWAKE, A/O X4, VERBALLY RESPONSIVE AND ABLE TO MAKE NEEDS KNOWN, YI SPEAKING. NO SIGNS OF ACUTE DISTRESS NOTED. ON O2 INHALATION AT 2LPM VIA NC TOLERATING WELL, SATURATING 99%. NO SOB NOTED, BREATHING EVEN AND UNLABORED. ON TELE MONITOR-AFIB CONTROLLED HR:88. WITH IV ACCESS ON LEFT ANTECUBITAL AREA #20G, INTACT AND PATENT, SL. ALL NEEDS ATTENDED. DUE MEDS GIVEN ORDER NOTED. SAFETY MEASURE IN PLACE. BED IN LOW AND LOCKED POSITION; SIDE RAILS UP X2; CALL LIGHT PLACED WITHIN EASY REACH. WILL CONTINUE TO MONITOR THE PATIENT. WILL ENDORSE TO PIER MASTER NURSE FOR CONTINUITY OF CARE.
--- NOTE | 2022-12-14 19:43 | NUR ---
RN OPENING NOTE; RECEIVED PATIENT IN BED, AWAKE, A/O X4, VERBALLY RESPONSIVE AND ABLE TO MAKE NEEDS KNOWN, DIVEHI SPEAKING.ON 2L O2 VIA NC FARZAD WELL SATING 98%,NO SOB/DISTRESS NOTED,WITH IV ACCESS ON LEFT ANTECUBITAL AREA #20G, INTACT AND PATENT, SALINE LOCKED.SAFETY MEASURE MAINTAINED. BED IN LOW AND LOCKED POSITION, SIDE RAILS UP X2, CALL LIGHT PLACED WITHIN EASY REACH. WILL CONTINUE TO MONITOR.
[2022-12-14] MEDS: GABAPENTIN 300 MG CAPSULE PO SCH (21:19)
[2022-12-14] MEDS: ATORVASTATIN 40 MG TABLET PO SCH (21:19)
[2022-12-14 23:50] VITALS: BP 94/46
[2022-12-15] VITALS: BP 105/56
--- NOTE | 2022-12-15 06:15 | NUR ---
RN CLOSING NOTE; PATIENT IN BED, AWAKE, A/O X4, VERBALLY RESPONSIVE AND ABLE TO MAKE NEEDS KNOWN, MALAY SPEAKING.ON 2L O2 VIA NC FARZAD WELL SATING 96%,NO SOB/DISTRESS NOTED,NO COMPLAIN OF PAIN/DISCOMFORT DURING SHIFT,ALL NEEDS ATTENDED,DUE MEDS GIVEN ORDER,WITH IV ACCESS ON LEFT ANTECUBITAL AREA #20G, INTACT AND PATENT, SALINE LOCKED.SAFETY MEASURE MAINTAINED. BED IN LOW AND LOCKED POSITION, SIDE RAILS UP X2, CALL LIGHT PLACED WITHIN EASY REACH. WILL ENDORSED TO NEXT SHIFT.
[2022-12-15] MEDS: BLOOD SUGAR DIAGNOSTIC 1 EACH STRIP IN SCH ×4 (06:47→22:30)
[2022-12-15 07:16] LABS: BASOPHILS % (AUTO) 0.2 % (0.0-2.0); EOSINOPHILS % (AUTO) 0.5 % (0.0-6.0); HEMATOCRIT 47 % (39-51); HEMOGLOBIN 14.9 g/dL (13.5-17.5); LYMPHOCYTES # (AUTO) 1.8 K/uL (0.8-4.8); LYMPHOCYTES % (AUTO) 23.5 % (20.0-44.0); MEAN CORPUSCULAR HGB CONC 32 g/dl (31.0-36.0); MEAN CORPUSCULAR VOLUME 94 fL (80-96); MONOCYTES # (AUTO) 0.8 K/uL (0.1-1.30); MONOCYTES % (AUTO) 10.8 % (2.0-12.0); NEUTROPHILS # (AUTO) 4.9 K/uL (1.8-8.9); PLATELET COUNT (AUTO) 186 K/uL (150-450); RED BLOOD CELL COUNT(AUTO) 4.94 MIL/uL (4.5-6.0); WHITE BLOOD COUNT (AUTO) 7.5 K/uL (4.3-11.0)
[2022-12-15 07:23] LABS: ALBUMIN 3.5 g/dL (3.4-5.0); BILIRUBIN,TOTAL 0.9 mg/dL (0.2-1.0); CALCIUM, SERUM 9.2 mg/dL (8.5-10.1); CREATININE 1.9 mg/dL (0.6-1.3); MAGNESIUM 2.1 mg/dL (1.8-2.4); PHOSPHORUS 4.1 mg/dL (2.5-4.9); POTASSIUM 3.5 mmol/L (3.5-5.1); TOTAL PROTEIN, SERUM 6.9 g/dL (6.4-8.2)
--- NOTE | 2022-12-15 07:30 | NUR ---
PT RECEIVED RESTING COMFORTABLY IN BED. NO S/S OR C/O PAIN OR DISTRESS NOTED. SIDE RAILS UP X2, CALL LIGHT LEFT WITHIN REACH. WILL CONTINUE PLAN OF CARE.
[2022-12-15] MEDS: AMLODIPINE BESYLATE 5 MG TABLET PO SCH (09:00)
[2022-12-15] MEDS: FOLIC ACID 1 MG TABLET PO SCH (09:12)
[2022-12-15] MEDS: POTASSIUM CHLORIDE 10 MEQ TABLET.SA PO SCH (09:12)
[2022-12-15] MEDS: GLIMEPIRIDE 1 MG TABLET PO SCH ×2 (09:13→16:40)
[2022-12-15] MEDS: ENOXAPARIN SODIUM 40 MG/0.4 ML DISP.SYRIN SQ SCH (09:16)
[2022-12-15 10:00] VITALS: BP 102/70
[2022-12-15 15:08] LABS: ABG BASE EXCESS 7.9 mmol/L; ABG PCO2 60.6 mmHg (35.0-45.0); ABG PH 7.386 (7.350-7.450); ABG PO2 85.1 mmHg (75.0-100.0); COHb 1.3 % (0.5-1.5); O2Hb 95.3 % (94.0-97.0); SITE, ABG Left Radial; VENT MODE, BG NC 2 LPM
--- NOTE | 2022-12-15 19:34 | NUR ---
RN OPENING NOTE; RECEIVED PATIENT IN BED, AWAKE, A/O X4, VERBALLY RESPONSIVE AND ABLE TO MAKE NEEDS KNOWN, MALAY SPEAKING.ON 2L O2 VIA NC FARZAD WELL SATING 96%,NO SOB/DISTRESS NOTED,WITH IV ACCESS ON LEFT ANTECUBITAL AREA #20G, INTACT AND PATENT, SALINE LOCKED.SAFETY MEASURE MAINTAINED. BED IN LOW AND LOCKED POSITION, SIDE RAILS UP X2, CALL LIGHT PLACED WITHIN EASY REACH. WILL CONTINUE TO MONITOR.
[2022-12-15 20:00] VITALS: BP 110/68
[2022-12-15] MEDS: GABAPENTIN 300 MG CAPSULE PO SCH (21:12)
[2022-12-15] MEDS: ATORVASTATIN 40 MG TABLET PO SCH (21:12)
[2022-12-16] VITALS: BP 133/67
[2022-12-16 04:00] VITALS: BP 97/66
--- NOTE | 2022-12-16 06:31 | NUR ---
RN CLOSING NOTE; PATIENT IN BED, AWAKE, A/O X4, VERBALLY RESPONSIVE AND ABLE TO MAKE NEEDS KNOWN, ALBANIAN SPEAKING.ON 2L O2 VIA NC FARZAD WELL SATING 95%,NO SOB/DISTRESS NOTED,NO COMPLAIN OF PAIN/DISCOMFORT DURING SHIFT,ALL NEEDS ATTENDED,DUE MEDS GIVEN ORDER,WITH IV ACCESS ON LEFT ANTECUBITAL AREA #20G, INTACT AND PATENT, SALINE LOCKED.SAFETY MEASURE MAINTAINED. BED IN LOW AND LOCKED POSITION, SIDE RAILS UP X2, CALL LIGHT PLACED WITHIN EASY REACH. WILL ENDORSED TO NEXT SHIFT.
[2022-12-16] MEDS: BLOOD SUGAR DIAGNOSTIC 1 EACH STRIP IN SCH ×2 (06:38→11:54)
[2022-12-16 07:28] LABS: BASOPHILS % (AUTO) 0.4 % (0.0-2.0); EOSINOPHILS % (AUTO) 0.6 % (0.0-6.0); HEMATOCRIT 49 % (39-51); HEMOGLOBIN 16.2 g/dL (13.5-17.5); LYMPHOCYTES # (AUTO) 1.6 K/uL (0.8-4.8); LYMPHOCYTES % (AUTO) 25.7 % (20.0-44.0); MEAN CORPUSCULAR HGB CONC 33 g/dl (31.0-36.0); MEAN CORPUSCULAR VOLUME 94 fL (80-96); MONOCYTES # (AUTO) 0.7 K/uL (0.1-1.30); MONOCYTES % (AUTO) 10.5 % (2.0-12.0); NEUTROPHILS % (AUTO) 62.8 % (43.0-81.0); PLATELET COUNT (AUTO) 183 K/uL (150-450); RED BLOOD CELL COUNT(AUTO) 5.27 MIL/uL (4.5-6.0); WHITE BLOOD COUNT (AUTO) 6.3 K/uL (4.3-11.0)
--- NOTE | 2022-12-16 07:30 | NUR ---
RN CLOSING NOTE; RECEIVED PATIENT IN BED, AWAKE, A/O X4, VERBALLY RESPONSIVE AND ABLE TO MAKE NEEDS KNOWN, ARABIC SPEAKING. ON 2L O2 VIA NC TOLERATING AND SATURATING WELL,NO SOB/DISTRESS NOTED, NO COMPLAIN OF PAIN/DISCOMFORT DURING SHIFT,ALL NEEDS ATTENDED,DUE MEDS GIVEN ORDER,WITH IV ACCESS ON LEFT ANTECUBITAL AREA #20G, INTACT AND PATENT, SALINE LOCKED. ON TELE MONITOR CONTROLLED AFIB 88. SAFETY MEASURES MAINTAINED. BED IN LOW AND LOCKED POSITION, SIDE RAILS UP X2, CALL LIGHT PLACED WITHIN EASY REACH. WILL ADMINISTER SCHEDULED MEDS ORDERED.
--- NOTE | 2022-12-16 07:31 | NUR ---
SALES ACCOUNT LEADER OPENING NOTE; RECEIVED PATIENT IN BED, AWAKE, A/O X4, VERBALLY RESPONSIVE AND ABLE TO MAKE NEEDS KNOWN, LATVIAN SPEAKING. ON 2L O2 VIA NC TOLERATING AND SATURATING WELL,NO SOB/DISTRESS NOTED, NO COMPLAIN OF PAIN/DISCOMFORT DURING SHIFT,ALL NEEDS ATTENDED,DUE MEDS GIVEN ORDER,WITH IV ACCESS ON LEFT ANTECUBITAL AREA #20G, INTACT AND PATENT, SALINE LOCKED. ON TELE MONITOR CONTROLLED AFIB 88. SAFETY MEASURES MAINTAINED. BED IN LOW AND LOCKED POSITION, SIDE RAILS UP X2, CALL LIGHT PLACED WITHIN EASY REACH. WILL ADMINISTER SCHEDULED MEDS ORDERED.
[2022-12-16 08:00] VITALS: BP 118/73
[2022-12-16] MEDS: GLIMEPIRIDE 1 MG TABLET PO SCH (08:22)
[2022-12-16] MEDS: FOLIC ACID 1 MG TABLET PO SCH (08:22)
[2022-12-16] MEDS: POTASSIUM CHLORIDE 10 MEQ TABLET.SA PO SCH (08:22)
[2022-12-16] MEDS: ENOXAPARIN SODIUM 40 MG/0.4 ML DISP.SYRIN SQ SCH (08:26)
--- NOTE | 2022-12-16 08:30 | NUR ---
RN NOTES SEEN BY DR. PRECIADO, ORDERED TO CHECK PT O2 SAT ON ROOM AIR. PT SATURATING AT 90%. DECREASED O2 TO 1 L/MIN PER MD. DISCHARGE INSTRUCTIONS GIVEN LATER PM.
[2022-12-16 08:32] LABS: ALBUMIN 3.7 g/dL (3.4-5.0); BILIRUBIN,TOTAL 1.1 mg/dL (0.2-1.0); MAGNESIUM 2.4 mg/dL (1.8-2.4); PHOSPHORUS 3.4 mg/dL (2.5-4.9); POTASSIUM 4.1 mmol/L (3.5-5.1); TOTAL PROTEIN, SERUM 7.3 g/dL (6.4-8.2)
[2022-12-16] MEDS: AMLODIPINE BESYLATE 5 MG TABLET PO SCH (08:55)
[2022-12-16 10:25] LABS: CALCIUM, SERUM 9.4 mg/dL (8.5-10.1); CREATININE 1.6 mg/dL (0.6-1.3)
--- NOTE | 2022-12-16 11:18 | NUR ---
PRACTICE ASSISTANT NOTES PT SATURATING AT 91% ON ROOM AIR. PER DR. HERNANDEZ, D/C OXYGEN.
[2022-12-16 12:00] VITALS: BP 113/76
[2022-12-16] MEDS ORDERED: FURO40TA5 PO (14:52)
--- NOTE | 2022-12-16 16:00 | NUR ---
PT DISCHARGED AT 1600 IN STABLE CONDITION. NO SIGNS OF DISTRESS. IV PULLED OUT AND REMOVED TELE MONITOR. DISCHARGE INSTRUCTIONS GIVEN AND EXPLAINED TO PATIENT AND DAUGHTER ABOUT FOLLOW UP CHECK UP WITH METEOROLOGICAL OBSERVER AND MACHINE I TRIMMER. PT UNDERSTOOD AND VERBALIZES NO CONCERNS. ASSISTED PT OUT OF THE HOSPITAL VIA WHEELCHAIR. PT EDUCATION DONE AND INSTRUCTED TO RETURN TO ER OR CALL 911 INC[facility] OF EMERGENCY.
== END 2022-12-16 16:00 | disposition home or self-care (01) | DRG 291 ==
LOC: ER 21:03 → TELE 12-12 01:07
PROVIDERS: ADMIT Nurse Practitioner Acute Care; ATTEND Internal Medicine
DX: I13.0 Hypertensive heart and chronic kidney disease with heart failure and stage 1 through stage 4 chronic kidney disease, or unspecified chronic kidney disease (principal); I50.33 Acute on chronic diastolic (congestive) heart failure; N17.0 Acute kidney failure with tubular necrosis; J96.22 Acute and chronic respiratory failure with hypercapnia; E66.2 Morbid (severe) obesity with alveolar hypoventilation; D68.59 Other primary thrombophilia; E46 Unspecified protein-calorie malnutrition; N18.30 Chronic kidney disease, stage 3 unspecified; E11.22 Type 2 diabetes mellitus with diabetic chronic kidney disease; G47.33 Obstructive sleep apnea (adult) (pediatric); K59.00 Constipation, unspecified; Z79.84 Long term (current) use of oral hypoglycemic drugs; Z87.01 Personal history of pneumonia (recurrent)
CPT/HCPCS: 36415; 36600; 71045-TC; 76770-TC; 80048-TC; 80053-TC; 80061-TC; 80076-TC; 82570-TC; 82803-TC; 82962-TC; 83735-TC; 83880; 84100-TC; 84300-TC; 84484-TC; 85025-TC; 85378-TC; 87081-TC; 93307-TC; 93970-TC; 94799-TC; C9803; G0378; J1650; J1815; J1940

== ENCOUNTER 2024-03-18 18:07 | Emergency (ER) | payer MEDICARE, OTHER ==
[~2024-03-18] VITALS: Ht 167.6 cm; Wt 65.8 kg
[~2024-03-18 18:07] MED LIST changes: -AMLO-212 PO; +ATOR40TA PO; +CARV25TA2 PO; +DULA0.75 SQ; +EMPA10TA PO; +ERGO500093 PO; +FOLI0.4T6 PO; +FURO40TA5 PO; +GABA300C PO; +GLIM2TAB31 PO; -GUAI5SYR PO; +LOSA50TA39 PO; -METF-440 PO; +POTA10TA10 PO; -VALS80TA2 PO
[2024-03-18 18:59] LABS: BASOPHILS % (AUTO) 0.4 % (0.0-2.0); EOSINOPHILS % (AUTO) 0.5 % (0.0-6.0); HEMATOCRIT 50 % (39-51); HEMOGLOBIN 16.5 g/dL (13.5-17.5); LYMPHOCYTES # (AUTO) 1.8 K/uL (0.8-4.8); LYMPHOCYTES % (AUTO) 26.3 % (20.0-44.0); MEAN CORPUSCULAR HEMOGLOBIN 30 PG (26.0-33.0); MEAN CORPUSCULAR HGB CONC 33 g/dl (31.0-36.0); MEAN CORPUSCULAR VOLUME 90 fL (80-96); MONOCYTES # (AUTO) 0.6 K/uL (0.1-1.30); NEUTROPHILS # (AUTO) 4.4 K/uL (1.8-8.9); NEUTROPHILS % (AUTO) 63.8 % (43.0-81.0); PLATELET COUNT (AUTO) 170 K/uL (150-450); RED BLOOD CELL COUNT(AUTO) 5.53 MIL/uL (4.5-6.0); WHITE BLOOD COUNT (AUTO) 6.9 K/uL (4.3-11.0)
[2024-03-18 19:11] LABS: CALCIUM, SERUM 9.2 mg/dL (8.5-10.1); CARBON DIOXIDE 27 mmol/L (21-32); CHLORIDE 103 mmol/L (98-107); CREATININE 1.6 mg/dL (0.6-1.3); GLUCOSE 133 mg/dL (74-106); POTASSIUM 4.3 mmol/L (3.5-5.1); SODIUM SERUM 134 mmol/L (136-145); UREA NITROGEN, BLOOD 31 mg/dL (7-18)
[2024-03-18] MEDS ORDERED: PRED5DRO16 EACHEYE (19:13)
[2024-03-18] MEDS ORDERED: APIX5TAB PO (19:13)
[2024-03-18] MEDS ORDERED: DORZ10DR11 EACHEYE (19:13)
[2024-03-18] MEDS ORDERED: ATRO2DRO4 RIGHTEYE (19:13)
[2024-03-18] MEDS ORDERED: TEMA30CA PO (19:13)
[2024-03-18] MEDS ORDERED: MAGN400T52 PO (19:13)
[2024-03-18] MEDS ORDERED: POTA10TA21 PO (19:13)
[2024-03-18] MEDS ORDERED: Mounjaro SQ (19:13)
[2024-03-18] MEDS ORDERED: FURO20TA4 PO (19:13)
[2024-03-18 19:26] LABS: NT-PRO BNP 861 pg/mL (0-125)
[2024-03-18 19:38] LABS: APPEARANCE,URINE Clear (CLEAR); BILIRUBIN,URINE Negative (NEGATIVE); BLOOD, URINE Negative Ery/uL (NEGATIVE); COLOR,URINE YELLOW (YELLOW); KETONES,URINE Negative (NEGATIVE); LEUKOCYTE ESTERASE ,URINE Negative (NEGATIVE); NITRITE, URINE Negative (NEGATIVE); PROTEIN,URINE 100 mg/dl (NEGATIVE); UGLUCOSE Negative (NEGATIVE); UROBILINOGEN,URINE 0.2 EU/dL (0.2)
[2024-03-18 19:43] VITALS: TEMP 98.1
[2024-03-18 19:52] LABS: ADD URINE CULTURE NO; BACTERIA,URINE Few /HPF (None Seen); RBC,URINE 0-2 /HPF (0-2); SPERM,URINE Few /HPF (None Seen); SQUAMOUS EPITHELIAL CELL,UR Few /HPF (None Seen); WBC,URINE 0-2 /HPF (0-3)
[2024-03-18 20:50] VITALS: BP 128/89; O2SAT 95
== END 2024-03-18 20:51 | disposition home or self-care (01) ==
LOC: ER 18:12
DX: I48.91 Unspecified atrial fibrillation (principal); R07.89 Other chest pain; R06.09 Other forms of dyspnea; R60.0 Localized edema; I10 Essential (primary) hypertension; E78.5 Hyperlipidemia, unspecified; J18.9 Pneumonia, unspecified organism
CPT/HCPCS: 36415; 71045-TC; 80048-TC; 81001; 83880; 84484-TC; 85025-TC